=== PATIENT | female | born 1980 | race African-American/Black ===

== ENCOUNTER 2016-08-18 05:51 | Emergency (ER) | payer MEDICAID ==
[~2016-08-18] VITALS: Ht 157.5 cm; Wt 57.6 kg
[2016-08-18 06:39] LABS: Basophils # (auto) 0 uL; Basophils % (auto) 0.3 % (0.0-2.0); Eosinophils # (auto) 0 uL; Eosinophils % (auto) 0.3 % (0.0-7.0); Hematocrit 45.7 % (36.0-46.0); Hemoglobin 14.6 g/dL (12.2-16.2); Lymphocytes # (auto) 1.6 uL; Lymphocytes % (auto) 33.2 % (10.0-50.0); Mean Corpuscular Hemoglobin 31.7 pg (28.0-32.0); Mean Corpuscular Volume 98.8 fL (80.0-100.0); Mean Platelet Volume 7.2 fL (7.4-10.4); Monocytes # (auto) 0.4 uL; Monocytes % (auto) 8.2 % (0.0-12.0); Neutrophils # (auto) 2.8 uL; Platelet Count (auto) 225 10^3/uL (140-450); Red Cell Distribution Width 13.4 % (11.6-16.0); White Blood Cell 4.9 10^3/uL (4.4-10.8)
[2016-08-18] MEDS ORDERED: DONNATAL 5ml ORAL Elix (BELLADONNA ALK-PHENOBARB) PO ONE (06:45)
[2016-08-18] MEDS ORDERED: PANTOPRAZOLE SODIUM 40 MG/10 ML VIAL IV ONE (06:45)
[2016-08-18] MEDS ORDERED: SODIUM CHLORIDE 0.9% 1,000 ML IV ONE (06:45)
[2016-08-18] MEDS ORDERED: ALUM & MAG HYDROX-SIMETH LIQ(MAALOX) 30 ML PO ONE (06:45)
[2016-08-18] MEDS ORDERED: MORPHINE SULF INJ 2 MG/ML SYRINGE 1ML IV ONE (06:45)
[2016-08-18] MEDS ORDERED: ONDANSETRON HCL 4 MG/2 ML VIAL IV ONE (06:45)
[2016-08-18] MEDS ORDERED: LIDOCAINE VISCOUS 2% 15ML UD PO ONE (06:45)
[2016-08-18 07:48] VITALS: BP 128/96
[2016-08-18 08:16] LABS: Potassium 3.8 mmol/L (3.5-5.1)
[2016-08-18 08:17] LABS: BUN/Creatinine Ratio 9.9
[2016-08-18 08:18] LABS: Albumin 3.8 g/dL (3.4-5.0); Bilirubin, Total 0.2 mg/dL (0.2-1.0); Total Protein 7.3 g/dL (6.4-8.2)
== END 2016-08-18 09:03 | disposition home or self-care (01) ==
LOC: ER 05:56
DX: K29.00 Acute gastritis without bleeding (principal); K21.9 Gastro-esophageal reflux disease without esophagitis; G89.29 Other chronic pain; M54.9 Dorsalgia, unspecified
CPT/HCPCS: 36415; 74176; 80053; 82150; 83690; 84702; 85025; 96361; 96374; 96375; 99285; C9113; J2270; J2405; J7030